=== PATIENT | male | born 1980 | race Caucasian/White ===

== ENCOUNTER 2019-10-16 22:40 | Outpatient (REF) | payer OTHER, SELFPAY ==
[2019-10-18 10:41] LABS: Hepatitis C Ab w Rflx HCV PCR Negative (Negative)
[2019-10-18 10:42] LABS: HBs Antibody, Quant <3.1 mIU/mL; Hepatitis B Surface Ab Negative (See Note)
[2019-10-18 10:50] LABS: HIV-1/2 Ag & Ab Screen Negative (Negative)
[2019-10-18 11:57] LABS: Syphilis Serology (RPR) Negative (Negative)
[2019-10-18 14:36] LABS: Chlamydia Result Negative (Negative)
[2019-10-19 08:58] LABS: GC Result Negative (Negative)
== END 2019-10-16 23:00 ==
LOC: NCHCN 22:40
PROVIDERS: PCP Family Medicine; Visit Provider Nurse Practitioner Family
DX: Z11.3 Encounter for screening for infections with a predominantly sexual mode of transmission (principal); Z11.59 Encounter for screening for other viral diseases; Z01.84 Encounter for antibody response examination; Z11.4 Encounter for screening for human immunodeficiency virus [HIV]
CPT/HCPCS: 86706; 86803; 87389; 87491; 87591; 86592